=== PATIENT | male | born 1980 | race Two or more races ===

== ENCOUNTER 2016-12-06 11:01 | Emergency (ER) | payer OTHER ==
[2016-12-06 11:07] VITALS: RESP 20; TEMP 97.1
[2016-12-06 11:43] LABS: BASOPHILS % (AUTO) 1 % (0-3); EOSINOPHILS % (AUTO) 2 % (0-9); HEMATOCRIT 42 % (39-53); MEAN CORPUSCULAR VOLUME 89 fL (80-100); MONOCYTES % (AUTO) 6.6 % (0-12); NEUTROPHILS % (AUTO) 62.4 % (37-80)
[2016-12-06 11:59] LABS: ALBUMIN 3.7 gm/dl (3.4-5.0); ALT 34 IU/L (14-63); CALCIUM 8.6 mg/dl (8.5-10.1); GLOM FILT RATE 88 mL/min (>60); POTASSIUM 3.8 mMol/L (3.5-5.1); SODIUM 139 mMol/L (136-145)
[2016-12-06 12:19] VITALS: BP 135/71; PULSE 69; O2SAT 99
== END 2016-12-06 12:15 | disposition home or self-care (01) | DRG 880 ==
LOC: ED 11:01
DX: F41.9 Anxiety disorder, unspecified (principal); G50.1 Atypical facial pain; M79.1 Myalgia; R10.10 Upper abdominal pain, unspecified; R20.0 Anesthesia of skin; M79.642 Pain in left hand; M79.641 Pain in right hand
CPT/HCPCS: 80053; 84484; 85025; 93005; 99282